=== PATIENT | female | born 1990 | race Two or more races ===

== ENCOUNTER 2020-04-13 13:36 | Outpatient (REF) | payer MEDICAID, SELFPAY ==
[2020-04-13 15:13] LABS: MANUAL DIFF FLAG NO
[2020-04-13 15:18] LABS: Basophils Absolute Auto 0.1 X10*3/uL (0.0-0.2); Basophils Percent Auto 0.7 % (0-2); Eosinophils Absolute Auto 0.8 X10*3/uL (0.0-0.4); Eosinophils Percent Auto 8.5 % (0-4); Hematocrit 37.2 % (37-47); Hemoglobin 12.3 g/dl (12.0-16.0); Imm Gran Abs Auto 0.03 X10*3/uL (0.00-0.03); Imm Gran Pct Auto 0.3 % (0.0-0.4); Lymphocytes Absolute Auto 2.7 X10*3/uL (1.2-4.9); Lymphocytes Percent Auto 27.8 % (20-40); Mean Corpuscular HGB Conc 33.1 g/dl (31.0-35.0); Mean Corpuscular Volume 96.9 fL (80-98); Mean Platelet Volume 10.8 fL (9.4-12.3); Monocytes Absolute Auto 0.7 X10*3/uL (0.1-1.2); Monocytes Percent Auto 7.1 % (2-11); Neutrophils Absolute Auto 5.3 X10*3/uL (2.0-8.3); Neutrophils Percent Auto 55.6 % (45-73); Platelet Count 390 X10*3/uL (160-400); Red Blood Count 3.84 X10*6/uL (4.20-5.50); Red Cell Distribution Width 12.4 % (11.0-16.0); White Blood Count 9.5 X10*3/uL (4.8-10.8)
[2020-04-13 16:11] LABS: Ferritin 41 ng/mL (10-122); Thyroid Stimulating Hormone 22.79 uIU/mL (0.32-4.0)
== END 2020-04-13 13:37 | disposition home or self-care (01) ==
LOC: HO.LAB 13:36
PROVIDERS: Visit Provider Internal Medicine
DX: D50.9 Iron deficiency anemia, unspecified (principal); E03.9 Hypothyroidism, unspecified
CPT/HCPCS: 36415; 82728; 84443; 85025

== ENCOUNTER 2020-07-16 14:38 | Outpatient (REF) | payer MEDICAID, SELFPAY | END 2020-07-16 14:39 | disposition home or self-care (01) | LOC: HO.LAB 14:38 | PROVIDERS: PCP Internal Medicine; Visit Provider Internal Medicine | DX: D50.9 Iron deficiency anemia, unspecified (principal); E03.9 Hypothyroidism, unspecified | CPT/HCPCS: 36415; 84443 ==

== ENCOUNTER 2021-01-15 14:16 | Outpatient (REF) | payer MEDICAID, SELFPAY ==
[2021-01-15 15:11] LABS: MANUAL DIFF FLAG NO
[2021-01-15 15:15] LABS: Basophils Absolute Auto 0.1 X10*3/uL (0.0-0.2); Basophils Percent Auto 0.5 % (0-2); Eosinophils Absolute Auto 0.5 X10*3/uL (0.0-0.4); Eosinophils Percent Auto 4.9 % (0-4); Hematocrit 35.8 % (37-47); Hemoglobin 11.5 g/dl (12.0-16.0); Imm Gran Abs Auto 0.03 X10*3/uL (0.00-0.03); Imm Gran Pct Auto 0.3 % (0.0-0.4); Lymphocytes Percent Auto 20.3 % (20-40); Mean Corpuscular HGB Conc 32.1 g/dl (31.0-35.0); Mean Corpuscular Volume 99.7 fL (80-98); Mean Platelet Volume 10.8 fL (9.4-12.3); Monocytes Absolute Auto 0.7 X10*3/uL (0.1-1.2); Monocytes Percent Auto 7.3 % (2-11); Neutrophils Absolute Auto 6.4 X10*3/uL (2.0-8.3); Neutrophils Percent Auto 66.7 % (45-73); Platelet Count 325 X10*3/uL (160-400); Red Blood Count 3.59 X10*6/uL (4.20-5.50); Red Cell Distribution Width 11.2 % (11.0-16.0); White Blood Count 9.7 X10*3/uL (4.8-10.8)
[2021-01-15 15:53] LABS: Thyroid Stimulating Hormone 0.69 uIU/mL (0.32-4.0)
== END 2021-01-15 14:17 | disposition home or self-care (01) ==
LOC: HO.LAB 14:16
PROVIDERS: PCP Internal Medicine; Visit Provider Internal Medicine
DX: D50.9 Iron deficiency anemia, unspecified (principal); E03.9 Hypothyroidism, unspecified
CPT/HCPCS: 36415; 84443; 85025

== ENCOUNTER 2021-09-26 11:37 | Emergency (ER) | payer MEDICAID, SELFPAY ==
--- NOTE | ~2021-09-26 | XR_ITS ---
EXAMINATION: XR CHEST CLINICAL INFORMATION: Chest pain with shortness of breath COMPARISON: December 19, 2016 TECHNIQUE: 2 views of the chest were obtained. FINDINGS: No significant abnormality is noted involving the heart, lungs, mediastinum, bony thorax or soft tissues. XR/XR chest 2V IMPRESSION: No acute disease.
--- NOTE | ~2021-09-26 | CT_ITS ---
EXAMINATION: CT ANGIOGRAM OF THE CHEST WITH AND WITHOUT CONTRAST (CT PULMONARY ANGIOGRAM FOR PE) CLINICAL INFORMATION: Reason for Exam sudden onset CP, SOB, elevated d-dimer COMPARISON: Chest radiograph earlier today TECHNIQUE: Prior to contrast administration, noncontrast localization images were obtained. Subsequently, multidetector volumetric imaging was performed from the thoracic inlet to below the diaphragms following the administration of 65 mL Omnipaque 350 intravenous contrast. No contrast reaction reported Sagittal, coronal, and MIP oblique sagittal reformatted images were obtained on the CT workstation, uploaded to PACS, and reviewed. This CT examination was performed using dose optimization techniques as appropriate, variously including the following: *Automated exposure control *Adjustment of mA and/or kV according to patient size (this includes techniques or standardized protocols for targeted exams where dose is matched to indication/reason for exam; i.e. extremities or head) *Use of iterative reconstruction technique Total exam dose-length product 395 mGy-cm FINDINGS: QUALITY OF STUDY/CONTRAST BOLUS: Suboptimal. PULMONARY ARTERIES: No central or segmental pulmonary emboli. THORACIC AORTA: No aneurysm or dissection. LUNG: There is a 3 mm fissural lymph node in the major fissure (7:231). There is a 3 mm right middle lobe nodule (7:297) No focal consolidation, other nodules or masses. PLEURA: No pleural effusion or pneumothorax. MEDIASTINUM: Normal heart size. No pericardial effusion. No hilar or mediastinal lymphadenopathy. No evidence of septal bowing or right heart strain. CHEST WALL/AXILLA: No axillary or internal mammary lymphadenopathy. OSSEOUS STRUCTURES: No acute or suspicious osseous abnormality. UPPER ABDOMEN: There is diastases of the rectus muscles. No reflux of contrast into the hepatic veins to suggest elevated right heart pressures. CT/CT angio chest PE protocol IMPRESSION: No evidence of pulmonary emboli. 3 mm pulmonary nodules as described above which most likely need no further follow-up. 2017 Fleischner Society Recommendations for Lung Nodule(s): Follow-Up based on size (average of long- and short-axis diameters). Use most suspicious nodule for followup. Multiple Solid lung nodules < 6 mm: Follow up management based on most suspicious nodule. In a low-risk patient, no routine follow-up imaging is recommended. In a high-risk patient, a non-contrast Chest CT at 12 months is optional. If performed and the nodule is stable at 12 months, no further follow-up is recommended. These guidelines do not apply to patients younger than 35 years, immunocompromised patients, and patients with cancer. F/u in patients with significant comorbidities as clinically warranted. For lung cancer screening, adhere to Lung-RADS guidelines. Reference: Radiology. 2017 Cristobal; 284(1):228-243 VTE: negative
--- NOTE | 2021-09-26 11:38 | ECG_ITS ---
Test Reason : cp Blood Pressure : / mmHG Vent. Rate : 090 BPM Atrial Rate : 090 BPM P-R Int : 124 ms QRS Dur : 078 ms QT Int : 360 ms P-R-T Axes : 063 081 036 degrees QTc Int : 440 ms Normal sinus rhythm with sinus arrhythmia Normal ECG When compared to the previous EKG of No significant changes seen Referred By: Generic ED Physician Electronically Signed By:MICHELLE LACKEY MD
[2021-09-26 11:40] VITALS: BP 112/65; PULSE 70; RESP 22; TEMP 36.5; O2SAT 100; BMI 34.5
[2021-09-26 11:49] LABS: MANUAL DIFF FLAG NO
[2021-09-26 11:54] LABS: Basophils Absolute Auto 0.1 X10*3/uL (0.0-0.2); Basophils Percent Auto 0.7 % (0-2); Eosinophils Absolute Auto 0.4 X10*3/uL (0.0-0.4); Eosinophils Percent Auto 4.9 % (0-4); Hematocrit 38.2 % (37.0-47.0); Hemoglobin 12.6 g/dl (12.0-16.0); Imm Gran Abs Auto 0.02 X10*3/uL (0.00-0.03); Imm Gran Pct Auto 0.3 % (0.0-0.4); Lymphocytes Absolute Auto 1.6 X10*3/uL (1.2-4.9); Lymphocytes Percent Auto 21.9 % (20-40); Mean Corpuscular Hemoglobin 32.3 pg (27.0-33.0); Mean Corpuscular Volume 97.9 fL (80.0-98.0); Mean Platelet Volume 10.1 fL (9.4-12.3); Monocytes Absolute Auto 0.7 X10*3/uL (0.1-1.2); Monocytes Percent Auto 9.3 % (2-11); Neutrophils Absolute Auto 4.5 x10*3/uL (2.0-8.3); Neutrophils Percent Auto 62.9 % (45-73); Platelet Count 311 X10*3/uL (160-400); Red Cell Distribution Width 11.4 % (11.0-16.0); White Blood Count 7.1 X10*3/uL (4.8-10.8)
[2021-09-26 12:08] LABS: Anion Gap 10 (12-20); Blood Urea Nitrogen 8 mg/dL (9-16); Calcium 10.3 mg/dL (8.4-10.2); Carbon Dioxide 28 mmol/L (22-29); Chloride 104 mmol/L (96-108); Creatinine Clr Calc Pharmacy 113.6; Estimated Glomerular Filt Rate > 60; Glucose Random 90 mg/dL (60-115); Sodium 138 mmol/L (135-145)
[2021-09-26 12:14] LABS: Troponin-I High Sensitivity < 3.5 ng/L (<3.5-17.0)
[2021-09-26 12:53] LABS: HCG Quantitative < 2 mIU/mL
[2021-09-26 13:09] VITALS: BP 114/73; PULSE 73; RESP 19; O2SAT 99
[2021-09-26] MEDS: Acetaminophen 325 MG TABLET 975 MG PO (13:12)
[2021-09-26] MEDS: Lidocaine HCl Viscous 2 % 15 ML SOLUTION MUCOUS MEM (13:12)
[2021-09-26] MEDS: Magnesium Hydrox/Alum Hydrox 30 ML ORAL.SUSP PO (13:12)
--- NOTE | 2021-09-26 13:18 | ED_ITS ---
HPI - Chest Pain General Chief Complaint: Chest Pain Stated Complaint: chest pain Time Seen by Provider: 09/26/21 12:12 Source: patient Mode of arrival: ambulatory Limitations: no limitations History of Present Illness HPI narrative: patient presents emergency department for evaluation of sudden onset at 1000 this morning while sitting at work of midsternal chest pain described as an intense pressure like someone hitting me in my chest heart associated with intermittent feelings of shortness of breast, like I need to gasp for air . she reports a similar episode like this occur room 2 weeks ago but self resolved quickly over a few minutes and thought-avid. She contacted her primary care doctor today and schedule an appointment for evaluation in 4 days, but was advised to come to the emergency department if her symptoms continued or worsened. Denies recent upper respiratory symptoms, fevers, chills, cough, sore throat, congestion, nausea, vomiting, abdominal pain, diarrhea, constipation, dysuria, and frequency, possibility of . Denies past history of DVT/ PE, personal history of cancer, recent prolonged immobilization hospitalization, recent surgical procedures, known clotting disorder, does not smoke cigarettes, is not on oral control. Related Data Allergies Allergy/AdvReac Type Severity Reaction Status Date / Time aspirin [ASA] Allergy Intermediate Rash Verified 09/26/21 11:46 Review of Systems Review of Systems: Constitutional : No Fever, No Chills ENT/Mouth : No sore throat, No Rhinorrhea, No Swallowing Difficulty Eyes: No Eye Pain, No Swelling, No Redness Cardiovascular : Positive Chest Pain, positive SOB, No Orthopnea, no Edema Respiratory : No Cough, No Sputum, No Wheezing, positive dyspnea Gastrointestinal : No Nausea, No Vomiting, No Diarrhea, No abdominal Pain, No Hematochezia, No Melena Genitourinary : No Dysuria, No Urinary Frequency, No Hematuria Musculoskeletal : No joint pain, No Myalgias Skin : No Skin Lesions, No rash Neuro : No Weakness, No Numbness, No Dizziness, No Headache Psych : No Anxiety/Panic, No Depression Heme/Lymph: No Bruising, No Lymphadenopathy Endocrine : No Polyuria, No Polydipsia Yes all other systems are reviewed and are negative [facility] Past Medical History Attestation statement: The following information was validated with the patient. Source: old records reviewed Medical History Hypothyroidism Migraine Social History Social History Smoked in Last 30 Days: No Use of substances other than those prescribed or required for medical reasons: No Advance Directives: No Advance Directives Information Provided: Yes Patient : No Physical Exam Vital Signs: Vital Signs: Last Vital Signs Temp 98.3 F 09/26/21 17:34 Pulse 64 09/26/21 17:34 Resp 19 09/26/21 17:34 BP 114/71 09/26/21 17:34 Pulse Ox 97 09/26/21 17:34 BMI result Body Mass Index 34.5 Vital signs have been reviewed as normal and appeared to be correct. Blood pressure normal.? Heart rate normal.? Respiration rate normal. Temperature normal.? Oxygen saturation normal. Appearance: Alert.?Oriented to person, place and time. No acute distress.?Normal affect. Eyes: Pupils equal, round and reactive to light.? ENT: Pharynx normal.?? Neck: Normal inspection.? Neck supple.?? CVS: Heart sounds normal. Normal heart rate and rhythm.? Pulses normal.?? Respiratory: No respiratory distress.? Lung sounds clear to auscultation bilaterally?? Abdomen: Soft and non-tender. Normoactive bowel sounds. No pulsatile mass.?? Skin: Skin warm and dry.? Normal skin color.? ?? Extremities: No lower extremity edema.? No calf ttp? Neuro: Moves all extremities spontaneously. Sensation intact bilaterally. CN II- XII intact. No focal neuro deficits. Ambulates with normal steady gait. Course Course Course Narrative: Patient is a 31 year old female with no significant past medical history presenting for evaluation of sudden onset of chest pain and shortness breath. Will obtain CBC to evaluate for leukocytosis/ anemia, CMP to evaluate for abnormal electrolytes /abnormal renal function/ abnormal hepatic function, EKG and troponin to evaluate for ischemia/ACS. Chest x-ray to evaluate for consolidation/ infiltrate/ mass/ pulmonary congestion. Urinalysis to evaluate for infection. Will provide Tylenol for pain at this time in addition to Maalox lidocaine viscous. Reevaluation(s) Reevaluation #1: CBC and BMP are overall normal. COVID- 19 and influenza testing are negative. Chest x-ray with no acute disease. she reports mild improvement in her symptoms after receiving GI cocktail and Tylenol. Troponin <3.5, EKG reveals normal sinus rhythm, no acute concern for ischemia, no risk factors for ACS, given onset of symptoms just prior to arrival will obtain delta troponin. D-dimer mildly elevated at 259, therefore will obtain CT angio of the chest to exclude pulmonary embolism. Time: 14:42 Reevaluation #2: Repeat delta troponin <3.5, therfore unlikely ACS. CTA chest unremarkable for pulmonary embolism, there is a 3 mm right middle lobe lung nodule. discussed findings with patient, recommended outpatient follow-up with primary care provider regarding lung nodule, reviewed reasons to return back to the emergency department, plan of care for discharge home, all questions were answered, and she is agreeable with plan of care for discharge home. Time: 17:25 [facility] - Chest Pain Medical Records Data Attestation: I reviewed the patient's medical records. Lab Data Attestation: I reviewed the patient's lab results. Result diagrams: 09/26/21 11:45 09/26/21 11:45 Labs: Lab Results 09/26/21 09/26/21 09/26/21 Range/Units 11:45 11:45 11:45 WBC 7.1 (4.8-10.8) X10*3/uL RBC 3.90 L (4.20-5.50) X10*6/uL Hgb 12.6 (12.0-16.0) g/dl Hct 38.2 (37.0-47.0) % MCV 97.9 (80.0-98.0) fL MCH 32.3 (27.0-33.0) pg MCHC 33.0 (31.0-35.0) g/dl RDW 11.4 (11.0-16.0) % Plt Count 311 (160-400) X10*3/uL MPV 10.1 (9.4-12.3) fL Immature Gran % (Auto) 0.3 (0.0-0.4) % Neut % (Auto) 62.9 (45-73) % Lymph % (Auto) 21.9 (20-40) % [place] % (Auto) 9.3 (2-11) % Eos % (Auto) 4.9 H (0-4) % Baso % (Auto) 0.7 (0-2) % Lymph # (Auto) 1.6 (1.2-4.9) X10*3/uL [place] # (Auto) 0.7 (0.1-1.2) X10*3/uL Eos # (Auto) 0.4 (0.0-0.4) X10*3/uL Baso # (Auto) 0.1 (0.0-0.2) X10*3/uL Abs Immat Gran (auto) 0.02 (0.00-0.03) X10*3/uL Absolute Neuts (auto) 4.5 (2.0-8.3) x10*3/uL Absolute Nucleated RBC 0.000 (0.0-0.012) X10*3/uL Nucleated RBC % (auto) 0.0 (0.0-0.2) /100WBC D-Dimer High Sensitivty NG/ML Sodium 138 (135-145) mmol/L Potassium 4.0 (3.3-5.1) mmol/L Chloride 104 (96-108) mmol/L Carbon Dioxide 28 (22-29) mmol/L Anion Gap 10 L (12-20) BUN 8 L (9-16) mg/dL Creatinine 0.66 (0.5-1.4) mg/dL Estim Creat Clear Calc 113.6 Estimated GFR > 60 Random Glucose 90 (60-115) mg/dL Calcium 10.3 H (8.4-10.2) mg/dL Troponin I High Sens < 3.5 (<3.5-17.0) ng/L Beta HCG, Quant < 2 mIU/mL COVID-19 (OZIEL) (Negative) COVID-19 Clin Com Influenza Type A (JENNIFER) Influenza Type B (JENNIFER) Influenza A & B Note 09/26/21 09/26/21 09/26/21 Range/Units 13:14 13:14 14:00 WBC (4.8-10.8) X10*3/uL RBC (4.20-5.50) X10*6/uL Hgb (12.0-16.0) g/dl Hct (37.0-47.0) % MCV (80.0-98.0) fL MCH (27.0-33.0) pg MCHC (31.0-35.0) g/dl RDW (11.0-16.0) % Plt Count (160-400) X10*3/uL MPV (9.4-12.3) fL Immature Gran % (Auto) (0.0-0.4) % Neut % (Auto) (45-73) % Lymph % (Auto) (20-40) % Radford % (Auto) (2-11) % Eos % (Auto) (0-4) % Baso % (Auto) (0-2) % Lymph # (Auto) (1.2-4.9) X10*3/uL [place] # (Auto) (0.1-1.2) X10*3/uL Eos # (Auto) (0.0-0.4) X10*3/uL Baso # (Auto) (0.0-0.2) X10*3/uL Abs Immat Gran (auto) (0.00-0.03) X10*3/uL Absolute Neuts (auto) (2.0-8.3) x10*3/uL Absolute Nucleated RBC (0.0-0.012) X10*3/uL Nucleated RBC % (auto) (0.0-0.2) /100WBC D-Dimer High Sensitivty 259 NG/ML Sodium (135-145) mmol/L Potassium (3.3-5.1) mmol/L Chloride (96-108) mmol/L Carbon Dioxide (22-29) mmol/L Anion Gap (12-20) BUN (9-16) mg/dL Creatinine (0.5-1.4) mg/dL Estim Creat Clear Calc Estimated GFR Random Glucose (60-115) mg/dL Calcium (8.4-10.2) mg/dL Troponin I High Sens (<3.5-17.0) ng/L Beta HCG, Quant mIU/mL COVID-19 (OZIEL) Negative (Negative) COVID-19 Clin Com See Note Influenza Type A (JENNIFER) Cancelled Influenza Type B (JENNIFER) Cancelled Influenza A & B Note Cancelled 09/26/21 09/26/21 Range/Units 14:00 14:48 WBC (4.8-10.8) X10*3/uL RBC (4.20-5.50) X10*6/uL Hgb (12.0-16.0) g/dl Hct (37.0-47.0) % MCV (80.0-98.0) fL MCH (27.0-33.0) pg MCHC (31.0-35.0) g/dl RDW (11.0-16.0) % Plt Count (160-400) X10*3/uL MPV (9.4-12.3) fL Immature Gran % (Auto) (0.0-0.4) % Neut % (Auto) (45-73) % Lymph % (Auto) (20-40) % [place] % (Auto) (2-11) % Eos % (Auto) (0-4) % Baso % (Auto) (0-2) % Lymph # (Auto) (1.2-4.9) X10*3/uL [place] # (Auto) (0.1-1.2) X10*3/uL Eos # (Auto) (0.0-0.4) X10*3/uL Baso # (Auto) (0.0-0.2) X10*3/uL Abs Immat Gran (auto) (0.00-0.03) X10*3/uL Absolute Neuts (auto) (2.0-8.3) x10*3/uL Absolute Nucleated RBC (0.0-0.012) X10*3/uL Nucleated RBC % (auto) (0.0-0.2) /100WBC D-Dimer High Sensitivty NG/ML Sodium (135-145) mmol/L Potassium (3.3-5.1) mmol/L Chloride (96-108) mmol/L Carbon Dioxide (22-29) mmol/L Anion Gap (12-20) BUN (9-16) mg/dL Creatinine (0.5-1.4) mg/dL Estim Creat Clear Calc Estimated GFR Random Glucose (60-115) mg/dL Calcium (8.4-10.2) mg/dL Troponin I High Sens < 3.5 (<3.5-17.0) ng/L Beta HCG, Quant mIU/mL COVID-19 (OZIEL) (Negative) COVID-19 Clin Com Influenza Type A (JENNIFER) Negative Influenza Type B (JENNIFER) Negative Influenza A & B Note See Note Imaging Data Chest x-ray: Radiologist's impression: FINDINGS: No significant abnormality is noted involving the heart, lungs, mediastinum, bony thorax or soft tissues. XR/XR chest 2V IMPRESSION: No acute disease. ECG Data ECG #1: Attestation: I personally reviewed and interpreted this ECG as follows: ECG interpretation date: 09/26/21 ECG interpretation time: 13:18 Prior ECG tracings: available for review Interpretation: Rate: 90 Rhythm:? normal sinus rhythm [place]:? normal Normal P waves.? Normal JERAMY.?? Normal QRS complex.?? ST T wave :?? no ST elevation, no ST depression, T-wave inversion qTC: 440 prior studies:? December 2016 The study has been interpreted contemporaneously by me. Discharge Plan Discharge Clinical Impression: Atypical chest pain Patient Disposition: Home, Self-Care Instructions: Noncardiac Chest Pain (ED) Additional Instructions: return to the emergency department with any new or worsening symptoms or concerns. You may use Tylenol or ibuprofen as needed for pain. Please contact your primary care provider to schedule follow-up visit, as we discussed there was a 3mm nodule found in your right middle lobe, your primary care doctor should be made aware of this. Interventions: ED Discharge Assessment Last Done: 09/26/21 17:36 Discharge Date/Time: 09/26/21 17:38
[2021-09-26 13:43] LABS: COVID-19 Test Negative (Negative)
[2021-09-26 14:14] LABS: D Dimer High Sensitivity 259 NG/ML
[2021-09-26 14:22] LABS: Influenza A Negative (Negative); Influenza B2 Negative (Negative)
[2021-09-26 15:14] LABS: Troponin-I High Sensitivity < 3.5 ng/L (<3.5-17.0)
[2021-09-26 15:16] VITALS: BP 101/60; PULSE 65; RESP 15; TEMP 36.9; O2SAT 97
[2021-09-26] MEDS: iohexoL 350 MG/ML 100 ML INFUS..BTL IV (15:59)
[2021-09-26 17:34] VITALS: BP 114/71; PULSE 64; RESP 19; TEMP 36.8; O2SAT 97
== END 2021-09-26 17:38 | disposition home or self-care (01) ==
PROVIDERS: Nurse Practitioner Family; Emergency Provider Student in an Organized Health Care Education/Training Program; PCP Internal Medicine
DX: R07.89 Other chest pain (principal); Z20.822 Contact with and (suspected) exposure to COVID-19; Z79.899 Other long term (current) drug therapy
CPT/HCPCS: 36415; 71046; 71275; 80048; 84484; 84702; 85025; 85379; 87502; 87635; 93005; 99285; Q9967

== ENCOUNTER → 2021-10-07 14:36 | Outpatient (BNVA) | payer SELFPAY | PROVIDERS: PCP Internal Medicine | DX: Z11.1 Encounter for screening for respiratory tuberculosis (principal) ==

== ENCOUNTER 2022-04-22 14:03 | Outpatient (REF) | payer MEDICAID, SELFPAY ==
[2022-04-22 14:20] LABS: MANUAL DIFF FLAG NO
[2022-04-22 15:44] LABS: Basophils Absolute Auto 0.1 X10*3/uL (0.0-0.2); Basophils Percent Auto 0.8 % (0-2); Eosinophils Absolute Auto 0.4 X10*3/uL (0.0-0.4); Eosinophils Percent Auto 5.4 % (0-4); Hemoglobin 11.9 g/dl (12.0-16.0); Imm Gran Abs Auto 0.02 X10*3/uL (0.00-0.03); Imm Gran Pct Auto 0.3 % (0.0-0.4); Lymphocytes Percent Auto 24.8 % (20-40); Mean Corpuscular HGB Conc 32.2 g/dl (31.0-35.0); Mean Corpuscular Hemoglobin 31.8 pg (27.0-33.0); Mean Corpuscular Volume 98.9 fL (80.0-98.0); Monocytes Absolute Auto 0.6 X10*3/uL (0.1-1.2); Monocytes Percent Auto 7.5 % (2-11); Neutrophils Absolute Auto 4.9 x10*3/uL (2.0-8.3); Neutrophils Percent Auto 61.2 % (45-73); Platelet Count 327 X10*3/uL (160-400); Red Blood Count 3.74 X10*6/uL (4.20-5.50); Red Cell Distribution Width 11.5 % (11.0-16.0); White Blood Count 7.9 X10*3/uL (4.8-10.8)
[2022-04-22 16:32] LABS: Alanine Aminotransferase 22 U/L (0-31); Albumin Level 4.4 g/dL (3.5-5.0); Alkaline Phosphatase 55 U/L (39-117); Anion Gap 13 (12-20); Aspartate Amino Transferase 15 U/L (5-31); Bilirubin Total 1.8 mg/dL (0.0-1.0); Blood Urea Nitrogen 11 mg/dL (9-16); Calcium 9.9 mg/dL (8.4-10.2); Carbon Dioxide 26 mmol/L (22-29); Chloride 104 mmol/L (96-108); Estimated Glomerular Filt Rate > 60; Glucose Random 72 mg/dL (60-115); Potassium 4.1 mmol/L (3.3-5.1); Sodium 139 mmol/L (135-145); Thyroid Stimulating Hormone 2.01 uIU/mL (0.32-4.0); Total Protein 7.2 g/dL (6.5-8.0)
== END 2022-04-22 14:04 | disposition home or self-care (01) ==
LOC: HO.LAB 14:03
PROVIDERS: PCP Internal Medicine; Visit Provider Internal Medicine
DX: Z00.00 Encounter for general adult medical examination without abnormal findings (principal); E03.9 Hypothyroidism, unspecified; G44.209 Tension-type headache, unspecified, not intractable; Z13.31 Encounter for screening for depression
CPT/HCPCS: 36415; 80053; 84443; 85025

== ENCOUNTER 2022-10-15 13:42 | Outpatient (REF) | payer MEDICAID, SELFPAY ==
[2022-10-15 13:54] LABS: MANUAL DIFF FLAG NO
[2022-10-15 14:57] LABS: Basophils Percent Auto 0.4 % (0-2); Eosinophils Absolute Auto 0.5 X10*3/uL (0.0-0.4); Eosinophils Percent Auto 4.6 % (0-4); Hematocrit 36.4 % (37.0-47.0); Hemoglobin 12.1 g/dl (12.0-16.0); Imm Gran Abs Auto 0.03 X10*3/uL (0.00-0.03); Imm Gran Pct Auto 0.3 % (0.0-0.4); Lymphocytes Absolute Auto 2.3 X10*3/uL (1.2-4.9); Lymphocytes Percent Auto 23.3 % (20-40); Mean Corpuscular HGB Conc 33.2 g/dl (31.0-35.0); Mean Corpuscular Hemoglobin 32.5 pg (27.0-33.0); Mean Corpuscular Volume 97.8 fL (80.0-98.0); Mean Platelet Volume 10.6 fL (9.4-12.3); Monocytes Absolute Auto 0.7 X10*3/uL (0.1-1.2); Monocytes Percent Auto 6.6 % (2-11); Neutrophils Absolute Auto 6.4 x10*3/uL (2.0-8.3); Neutrophils Percent Auto 64.8 % (45-73); Platelet Count 333 X10*3/uL (160-400); Red Blood Count 3.72 X10*6/uL (4.20-5.50); White Blood Count 9.8 X10*3/uL (4.8-10.8)
[2022-10-15 16:17] LABS: Alanine Aminotransferase 22 U/L (0-31); Albumin Level 4.4 g/dL (3.5-5.0); Alkaline Phosphatase 52 U/L (39-117); Anion Gap 11 (12-20); Aspartate Amino Transferase 15 U/L (5-31); Bilirubin Total 1.6 mg/dL (0.0-1.0); Blood Urea Nitrogen 11 mg/dL (9-16); Calcium 9.8 mg/dL (8.4-10.2); Carbon Dioxide 28 mmol/L (22-29); Chloride 104 mmol/L (96-108); Estimated Glomerular Filt Rate > 60; Glucose Random 78 mg/dL (60-115); Potassium 4.1 mmol/L (3.3-5.1); Sodium 139 mmol/L (135-145); Total Protein 7.2 g/dL (6.5-8.0)
[2022-10-15 16:35] LABS: Thyroid Stimulating Hormone 2.39 uIU/mL (0.32-4.0)
== END 2022-10-15 13:43 | disposition home or self-care (01) ==
LOC: HO.LAB 13:42
PROVIDERS: PCP Internal Medicine; Visit Provider Internal Medicine
DX: Z00.00 Encounter for general adult medical examination without abnormal findings (principal); Z13.31 Encounter for screening for depression; E03.9 Hypothyroidism, unspecified; G44.209 Tension-type headache, unspecified, not intractable
CPT/HCPCS: 36415; 80053; 84443; 85025

== ENCOUNTER 2022-10-20 13:56 | Outpatient (REF) | payer MEDICAID, SELFPAY ==
[2022-10-22 15:14] LABS: TS Negative Control Passed; TS Panel A 0; TS Panel B 0; TS Positive Control Passed; TSpotTB Negative (Negative)
== END 2022-10-20 13:57 | disposition home or self-care (01) ==
LOC: HO.LAB 13:56
PROVIDERS: PCP Internal Medicine; Visit Provider Internal Medicine
DX: Z11.1 Encounter for screening for respiratory tuberculosis (principal)
CPT/HCPCS: 36415; 86481

== ENCOUNTER 2023-04-22 13:46 | Outpatient (REF) | payer MEDICAID, SELFPAY ==
[2023-04-22 15:23] LABS: Alanine Aminotransferase 24 U/L (0-31); Albumin Level 4.6 g/dL (3.5-5.0); Alkaline Phosphatase 51 U/L (39-117); Anion Gap 9 (12-20); Aspartate Amino Transferase 18 U/L (5-31); Bilirubin Total 1.9 mg/dL (0.0-1.0); Blood Urea Nitrogen 12 mg/dL (9-16); Calcium 9.5 mg/dL (8.4-10.2); Carbon Dioxide 26 mmol/L (22-29); Chloride 107 mmol/L (96-108); Estimated Glomerular Filt Rate > 60; Glucose Random 89 mg/dL (60-115); Sodium 138 mmol/L (135-145); Total Protein 7.7 g/dL (6.5-8.0)
[2023-04-22 15:31] LABS: Thyroid Stimulating Hormone 0.71 uIU/mL (0.32-4.0)
== END 2023-04-22 13:47 | disposition home or self-care (01) ==
LOC: HO.LAB 13:46
PROVIDERS: PCP Internal Medicine; Visit Provider Internal Medicine
DX: Z00.00 Encounter for general adult medical examination without abnormal findings (principal); E03.9 Hypothyroidism, unspecified; G44.209 Tension-type headache, unspecified, not intractable; G56.01 Carpal tunnel syndrome, right upper limb
CPT/HCPCS: 36415; 80053; 84443

== ENCOUNTER 2023-10-28 09:17 | Outpatient (REF) | payer MEDICAID, SELFPAY ==
[2023-10-28 11:15] LABS: Alanine Aminotransferase 25 U/L (0-31); Albumin Level 4.6 g/dL (3.5-5.0); Alkaline Phosphatase 53 U/L (39-117); Anion Gap 15 (12-20); Aspartate Amino Transferase 17 U/L (5-31); Bilirubin Total 2.4 mg/dL (0.0-1.0); Blood Urea Nitrogen 8 mg/dL (9-16); Calcium 9.6 mg/dL (8.4-10.2); Carbon Dioxide 22 mmol/L (22-29); Chloride 105 mmol/L (96-108); Cholesterol 170 mg/dL (<200); Estimated Glomerular Filt Rate > 60; Glucose Random 90 mg/dL (60-115); HDL Cholesterol 67 mg/dL (>40); LDL Cholesterol Calculated 90 mg/dL (<100); Sodium 138 mmol/L (135-145); Total Protein 7.6 g/dL (6.5-8.0); Triglycerides 66 mg/dL (<150)
[2023-10-28 11:19] LABS: Thyroid Stimulating Hormone 0.95 uIU/mL (0.32-4.0)
== END 2023-10-28 09:18 | disposition home or self-care (01) ==
LOC: HO.LAB 09:17
PROVIDERS: PCP Internal Medicine; Visit Provider Internal Medicine
DX: E03.9 Hypothyroidism, unspecified (principal); G44.209 Tension-type headache, unspecified, not intractable; G56.01 Carpal tunnel syndrome, right upper limb; R07.89 Other chest pain
CPT/HCPCS: 36415; 80053; 80061; 84443

== ENCOUNTER 2023-12-07 12:26 | Outpatient (AMB) | payer MEDICAID, SELFPAY ==
--- NOTE | 2023-12-07 12:39 | A.OFFVIS_ITS ---
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 She states that she is concerned as there is a family history of cardiac issues. Her chest pains or across the front of the chest, and it seems more so in the breast than the actual chest but not very clear. Discussed with patient using translator interpreter. Still somewhat difficult to understand completely. She states she also works out in the gym but not get pains at those times. Seems to be very random in occurrence. No previous cardiac issues per patient. Per PCP note, there is mention of chest pain radiating to neck and squeezing type symptoms. PFSH Medical History Migraine Hypothyroidism Family History (Updated 12/07/23 @ 12:46 by Kyara Leone CMA) Mother Hypertension Social History (Updated 12/07/23 @ 12:46 by Kyara Leone CMA) Alcohol intake: never Patient Tobacco Use Status: Never used Tobacco Review of Systems Const All systems reviewed & are unremarkable except as noted in HPI and below Reports as per HPI and Reports no additional complaints Eyes Reports as per HPI and Denies no additional complaints ENT Denies no additional complaints and Reports as per HPI Card Reports chest pain, Denies palpitations and Denies dyspnea Resp Reports as per HPI, Denies no additional complaints and Denies dyspnea GI Reports as per HPI and Denies no additional complaints Reports as per HPI Musc Reports no additional complaints and Reports as per HPI Skin/Breast Reports system reviewed and no additional complaints, except as documented Neuro Reports no additional complaints and Reports as per HPI Psych Reports no additional complaints and Reports as per HPI Endo Reports no additional complaints, Reports as per HPI and Denies palpitations Tommy/Lymph Reports no additional complaints and Reports as per HPI Aller/Immun Reports no additional complaints and Reports as per HPI Physical Exam Vital Signs: Last Vital Signs Pulse 66 12/07/23 12:40 BP 132/70 12/07/23 12:40 BMI result Body Mass Index 34.6 Const General: comfortable and no acute distress Orientation/consciousness: patient oriented x3 HEENT Other: Unremarkable Head: Yes normal to inspection Neck Neck: Yes normal visual inspection Chest Chest palpation & inspection: normal inspection of the chest Resp Auscultation: clear to auscultation bilaterally Cardio Palpation: normal PMI Heart sounds: S1 normal heart sound present, S2 normal heart sound present, no gallops, no murmurs and no rubs GI Palpation (GI): Soft to palpation Back/Spine/Pelvis Other: unremarkable Skin General skin exam: no rashes or lesions noted Neuro General: patient oriented x3 Extrem General: Yes normal to inspection Psych Mental Status: mental status grossly normal Office Procedures EKG Details: EKG with sinus rhythm at 66/Min; no significant ST-T changes and otherwise unremarkable[place]. [address]-[id number], Complete Assessment & Plan Assessment & Plan (1) Precordial chest pain: Code(s): R07.2 - Precordial pain Category: Medical Plan Atypical sounding chest pain. Obtain echocardiogram/ETT for further evaluation. Plan based on findings. Orders: Orders CA echo transthoracic complete Today R07.2 - Precordial pain CA stress test Today R07.2 - Precordial pain Coding Level of Care Code New Pt Level 3 (74863) Diagnoses Precordial chest pain R07.2 CPT Codes EKG - CPT: 85952-[id number], Complete ([id number])
[2023-12-07 12:40] VITALS: BP 132/70; PULSE 66; BMI 34.6
== END 2023-12-07 13:03 | disposition home or self-care (01) ==
PROVIDERS: PCP Internal Medicine; Visit Provider Internal Medicine
DX: R07.2 Precordial pain (principal)
CPT/HCPCS: 93010; 99203

== ENCOUNTER → 2023-12-07 12:26 | Outpatient (BNVA) | payer MEDICAID, SELFPAY | PROVIDERS: PCP Internal Medicine; Visit Provider Internal Medicine | DX: R07.2 Precordial pain (principal) | CPT/HCPCS: 93005; 99202 ==

== ENCOUNTER → 2024-01-06 09:03 | Outpatient (REF) | payer MEDICAID, SELFPAY ==
--- NOTE | 2024-01-06 09:08 | CA_ITS ---
Transthoracic Echocardiogram Patient (Last, First, Middle): Mariah Maguire, Gender: Female Date of : 1990 Age: 33 Procedure Date: 01/06/2024 Procedure Type: Transthoracic Echocardiogram Location: OP Height: 152.4 cm Weight: 80.29 kg BSA: 1.77 m2 Heart Rate: 59 bpm BP: 128 / 66 mmHg Telephone Services Sales Representative: MARSHA Referring MD: Benjamin Rucker MD Culinary Chef: Robert Durham MD Symptoms: R07.2 - Precordial pain Study Quality: Adequate ECG Rhythm: Bradycardia Conclusions: - Essentially normal study Findings Left Ventricle Normal left ventricular size, thickness, and systolic function. The visually estimated ejection fraction is between 55-60%. Diastolic function is normal for age. Right Ventricle Normal right ventricular cavity size and systolic function. Atria Both atria are normal in size. There is no evidence of interatrial shunt. Aortic Valve Normal aortic valve structure and function. There is no aortic valve stenosis. There is no aortic valve regurgitation. Mitral Valve Normal mitral valve structure and function. There is trace mitral valve regurgitation. There is no mitral valve stenosis. Pulmonic Valve The pulmonic valve is likely normal. There is trace pulmonic valve regurgitation. Tricuspid Valve Normal tricuspid valve structure. Tricuspid regurgitation envelope is inadequate for calculation of right ventricular systolic pressure. Normal right atrial pressure. Great Vessels All visible segments of the aorta are normal in size. The pulmonary artery was not well visualized. Venous The inferior vena cava is normal in size and collapses greater than 50% with inspiration. Pericardium/Pleural There is no evidence of pericardial effusion. Prior Study Comparison No prior study available for comparison. Measurements 2D Linear Measurements IVSd: 0.66 0.6-0.9/0.6-1.0 cm LVIDd: 5.21 3.9-5.3/4.2-5.9 cm LVIDd Index: 2.94 2.4-3.2/2.2-3.1 cm/m2 LVIDs: 3.46 2.0-3.6 cm LVPWd: 0.74 0.7-1.1 cm LA Diam: 3.40 2.7-3.8/3.0-4.0 cm LAIDs Index: 1.92 1.5-2.3 cm/m2 LV Mass: 153.14 67-162/88-224 g LV Mass Index: 86.52 43-95/49-115 g/m2 LVOT Diam: 2.10 3.0+(-)1.3 cm 2D Systolic Function EF 4C: 58.20 >55% EF 2C: 58.70 >55% EF BiP: 58.30 >55% Mitral Valve MV Pk E: 0.72 MV PK A: 0.34 MV Decel Time: 253.00 E/A: 2.10 E'Lateral: 9.90 E'Medial: 8.81 E/E' Med: 8.20 E/E' Lat: 7.30 PHT: 74.00 MVA PHT: 2.97 Decel [place]: 2.85 Aortic Valve AoV Pk Zechariah: 1.18 AoV Pk Grad: 6.00 ALMA ROSA: 3.05 LVOT LVOT Pk Zechariah: 1.03 LVOT Mn Zechariah: 0.71 LVOT VTI: 0.23 LVOT Pk Grad: 4.00 LVOT Mn Grad: 3.00 LVOT Diam: 2.10 LVOT Area: 3.46 Diastolic Function MV Pk E: 0.72 MV Pk A: 0.34 E/A: 2.10 E'Medial: 8.81 E/E' Med: 8.20 E' Laterial: 9.90 E/E' Lat: 7.30 Right Ventricle TAPSE (mm): 21.70 TVS' Zechariah: 12.30 Tricuspid Valve RA Press: 3.00 Great Vessels Aorta Sinus of Valsalva: 3.10 2.0-3.5 cm Ao Asc: 3.10 2.1-3.4 cm Pulmonary Valve PV Pk Zechariah: 0.93 Peak PV Grad: 3.00 DC Pk Zechariah: 1.35 Updated in Other Vendor System with Status of Final Robert Durham MD electronically signed on 01/06/2024 12:01:43 PM with status of Final
== END ==
LOC: HO.CARD 09:03
PROVIDERS: PCP Internal Medicine; Visit Provider Internal Medicine
DX: R07.2 Precordial pain (principal)
CPT/HCPCS: 93306

== ENCOUNTER → 2024-01-06 09:08 | Outpatient (BNV) | payer MEDICAID, SELFPAY | PROVIDERS: PCP Internal Medicine; Visit Provider Internal Medicine Cardiovascular Disease | DX: R07.2 Precordial pain (principal) | CPT/HCPCS: 93306 ==

== ENCOUNTER → 2024-01-12 10:00 | Outpatient (REF) | payer MEDICAID, SELFPAY ==
--- NOTE | 2024-01-12 10:03 | CA_ITS ---
Acquisition Time: 2024-01-12 10:03:55 Total Exercise Time: 00:10:00 Test Indications: CP Medications: SEE H Protocol: HAIM Max HR: 162 BPM 87% of Pred: 185 BPM Max BP: 140/070 mmHG Max Work Load: 11.7 METS Exercise stress test exercise 10 min of Haim protocol achieving 87% MPHR, without anginal symptoms, without arrhythmias, with normotensive response to exercise, without EKG changes. Test reviewed with Dr. Durham Referred By: Benjamin Rucker Overread By: Rosario Colby
== END ==
LOC: HO.CARD 10:00
PROVIDERS: PCP Internal Medicine; Visit Provider Internal Medicine
DX: R07.2 Precordial pain (principal)
CPT/HCPCS: 93017

== ENCOUNTER → 2024-01-12 10:03 | Outpatient (BNV) | payer MEDICAID, SELFPAY | PROVIDERS: PCP Internal Medicine; Visit Provider Nurse Practitioner | DX: R07.9 Chest pain, unspecified (principal) | CPT/HCPCS: 93016; 93018 ==

== ENCOUNTER 2024-10-11 08:58 | Outpatient (REF) | payer MEDICAID, SELFPAY ==
--- NOTE | 2024-10-11 09:00 | EMG_ITS ---
Right median and ulnar motor and sensory studies were performed. Right radial sensory and median and lateral antecubital brachial sensory studies were performed and paraspinal muscles were tested with a needle. IMPRESSION: Mild right ulnar nerve slowing across elbow. Otherwise no significant abnormality noted. MD YIN Rosario/GOPAL / [id number]
--- OUTSIDE RECORDS SUMMARY | 2024-10-11 09:36 | XMS_ITS | Clinical Summary ---
Author Organization [employer] Address [address] [place] [address] 7 [place] [address] Care Team Providers Care Estimate Clerk Name Role Phone Unavailable Primary Care Provider Unavailabl e Immunizations Name Administration Dates Next Due Influenza injectable quadrivalent preservative f ree 03/23/2023 Influenza, seasonal, injectable, preservative fr ee 02/22/2024 Moderna Covid-19 Vaccine 12+ 01/17/2021,08/21/19 21 Pfizer Covid-19 Vaccine 12+ 03/23/2023 Social History Tobacco Use Types Packs/Day Years Used Date Smoking Tobacco: Never Assessed Comments Unknown Sex and Gender Information Value Date Recorded Sex Assigned at Female 04/07/2022 10:30 AM EDT Legal Sex Female 10:30 AM EDT Gender Identity Female 04/07/2022 10:30 AM EDT Sexual Orientation Straight 04/07/2022 10 :30 AM EDT Plan of Treatment Health Maintenance Due Date Last Done Comments Depression Screening 1988 HIV Screening 1988 SDOH Screening 1988 Alcohol/Substance Use Screening 2000 Tobacco Screening 2000 Family Planning (PISQ) 09/22/2003 Hepatitis C Screening 2006 DTaP/Tdap/Td Vaccines (1 - Tdap) 09/22/2007 Hepatitis B Vaccines (1 of 3 - 19+ 3-dose series) 09/22/2007 Pap Smear 2009 Cervical Cancer Screening 2018 HPV/Cotest 2018 COVID-19 Vaccine (2023- season) 2024 03/23/2023, 07/09/2021, 01/17/2021, Additional history exists Zoster Vaccines (1 of 2) 2038 RSV Patients and Patients Aged 60 years or older (1 - 1-dose 75+ series) 09/22/2063 Influenza Vaccine Completed 02/22/2024, 03/23/2023 HIB Vaccines Aged Out No longer eligi ble based on patient's age to complete this topic HPV Vaccines Aged Out No longer eligi ble based on patient's age to complete this topic Hepatitis A Vaccines Aged Out No long er eligible based on patient's age to complete this topic IPV Vaccines Aged Out No longer eligi ble based on patient's age to complete this topic Meningococcal Vaccine Aged Out No maicol roland eligible based on patient's age to complete this topic Pneumococcal Vaccine: Pediatrics (0 to 5 Years) and At-Risk Patients (6 to 49) Years) Aged Out No longer eligible based on patient's age to complete this topic RSV under 20 months Aged Out No longe r eligible based on patient's age to complete this topic Rotavirus Vaccines Aged Out No longer eligible based on patient's age to complete this topic [place] [address] STANDARD
--- OUTSIDE RECORDS SUMMARY | 2024-10-11 09:36 | XMS_ITS | Clinical Summary ---
Author Organization [facility] Address [address] [place] [address] Phone Care Team Providers Care Ground Wood Supervisor Name Role Phone Physician, No Pcp Primary Care Provider Unavaila ble Social History Tobacco Use Types Packs/Day Years Used Date Smoking Tobacco: Never Assessed Comments Unknown Sex and Gender Information Value Date Recorded Sex Assigned at Not on file Legal Sex Female 3:57 AM EST Gender Identity Not on file Sexual Orientation Not on file Plan of Treatment Health Maintenance Due Date Last Done Comments DTaP,Tdap,and Td Vaccines (1 - Tdap) 09/22/2007 Hepatitis B Vaccines (1 of 3 - 19+ 3-dose series) 09/22/2007 Cervical Cancer Screening: Pap Smear 2009 COVID-19 Vaccine ( season) 2024 03/23/2023, 07/09/2021, 01/17/2021, Additional history exists Depression Screening 05/12/2024 HIV Screening 05/12/2024 Hepatitis C Screening 05/12/2024 Social Influencers of Health Screening 05/12/2024 Influenza Vaccine Completed 02/22/2024, 03/23/2023 HIB Vaccines [...] on patient's age to complete this topic MMR Vaccines Aged Out No longer eligi ble based on patient's age to complete this topic Meningococcal ACWY Vaccine Aged Out N o longer eligible based on patient's age to complete this topic Meningococcal B Vaccine Aged Out No l onger eligible based on patient's age to complete this topic Pneumococcal Vaccine: Pediatrics (0 to 5 Years) and At-Risk Patients (6 to 64 Years) Aged Out No longer eligible based on patient's age to complete this topic RSV Immunization Patients Under 20 months Aged Out No longer eligible based on patient's age to complete this topic Varicella Vaccines Aged Out No longer eligible based on patient's age to complete this topic [place] Care Teams Ground Wood Supervisor Relationship Specialty Start Date End Date Physician, No Pcp PCP - General 05/12/24
== END 2024-10-11 08:59 | disposition home or self-care (01) ==
LOC: HO.NEURO 08:58
PROVIDERS: PCP Internal Medicine; Visit Provider Internal Medicine
DX: G56.01 Carpal tunnel syndrome, right upper limb (principal)
CPT/HCPCS: 95886; 95910

== ENCOUNTER 2025-03-23 15:00 | Outpatient (REF) | payer MEDICAID, SELFPAY ==
--- NOTE | ~2025-03-23 | XR_ITS ---
EXAMINATION: XR HAND 3 OR MORE VIEWS LEFT HISTORY: INJURY OF MIDDLE FINGER COMPARISON: There are no prior studies available for comparison. FINDINGS: Three views of the left hand are submitted. Osseous mineralization is normal. There is no fracture or dislocation. The joint spaces are preserved. There is soft tissue swelling over the PIP joint of the middle finger. XR/XR hand LT min 3V IMPRESSION: Soft tissue swelling over the PIP joint of the middle finger. No fracture is seen. Electronically signed by: Kranthi Servin MD 03/23/2025 03:35 PM EDT
[2025-03-23 15:16] LABS: MANUAL DIFF FLAG NO
[2025-03-23 15:57] LABS: Hematocrit 36.5 % (37.0-47.0); Hemoglobin 11.9 g/dl (12.0-16.0); Imm Gran Abs Auto 0.05 X10*3/uL (0.00-0.03); Imm Gran Pct Auto 0.4 % (0.0-0.4); Lymphocytes Absolute Auto 2.5 X10*3/uL (1.2-4.9); Mean Corpuscular HGB Conc 32.6 g/dl (31.0-35.0); Mean Corpuscular Hemoglobin 32.7 pg (27.0-33.0); Mean Corpuscular Volume 100.3 fL (80.0-98.0); NRBC Abs Auto 0.000 X10*3/uL (0.0-0.012); NRBC Pct Auto 0.0 /100WBC (0.0-0.2); Platelet Count 345 X10*3/uL (160-400); Red Blood Count 3.64 X10*6/uL (4.20-5.50); White Blood Count 11.9 X10*3/uL (4.8-10.8)
[2025-03-23 16:44] LABS: Alanine Aminotransferase 30 U/L (0-31); Albumin Level 4.6 g/dL (3.5-5.0); Alkaline Phosphatase 55 U/L (39-117); Anion Gap 11 (12-20); Aspartate Amino Transferase 21 U/L (5-31); Blood Urea Nitrogen 11 mg/dL (9-16); Calcium 9.4 mg/dL (8.4-10.2); Carbon Dioxide 28 mmol/L (22-29); Chloride 105 mmol/L (96-108); Estimated Glomerular Filt Rate > 60; Potassium 3.6 mmol/L (3.3-5.1); Sodium 140 mmol/L (135-145); Total Protein 7.3 g/dL (6.5-8.0)
[2025-03-23 16:58] LABS: Thyroid Stimulating Hormone 1.33 uIU/mL (0.32-4.0)
--- OUTSIDE RECORDS SUMMARY | 2025-03-23 18:57 | XMS_ITS | Data Portability ---
Author Organization [facility] Address [address] [facility] [address] [place] [address] Care Team Providers Care Aoc Director Combat Operations Officer Name Role Phone CLAUDE WEISS Primary Care Provider NAYELI CLARK Referring Provider Assessment Encounter Date Assessment Date Assessment LastModified by Organization Details LastModified Time 10/14/2016 10/14/2016 Mariah Ji is a 26 year old woman with complaints of low back pain radiating into both lower extremities, left is greater than right. Pain started after a fall at home in May 2016. On exam, tenderness is elicited in her left piriformis muscle . MRI Lumbar spine shows minimal disc bulge at L4-5 with no nerve root impingement. She had a course of physical therapy with no pain benefit. I recommend a trial of left piriformis muscle injection under fluoroscopic guidance.The risks and benefits of the procedure were reviewed in detail . She wishes to proceed. An appointment has been booked. She needs a class b truck driver on the day of the procedure. [email or web address] Not available 11/04/2016 10:13:28 11/04/2016 11/04/2016 Mariah Ji is a 26 year old woman with complaints of low back pain radiating into both lower extremities, left is greater than right. Pain started after a fall at home in May 2016. On exam, tenderness is elicited in her left piriformis muscle . MRI Lumbar spine shows minimal disc bulge at L4-5 with no nerve root impingement. She had a course of physical therapy with no pain benefit. She is here for a trial of left piriformis muscle injection under fluoroscopic guidance.The risks and benefits of the procedure were reviewed in detail . She wishes to proceed. She needs to follow up in four weeks. [email or web address] Not available 11/04/2016 15:31:59 12/04/2016 12/04/2016 Mariah Ji is a 26 year old woman with complaints of low back pain radiating into both lower extremities, left is greater than right. Pain started after a fall at home in May 2016. On exam, tenderness is elicited in her left piriformis muscle . MRI Lumbar spine shows minimal disc bulge at L4-5 with no nerve root impingement. She had a course of physical therapy with no pain benefit. She is here for a follow up after a trial of left piriformis muscle injection under fluoroscopic guidance. She reports no pain benefit. I have given her samples to flector patches to place on her low back. I recommend an ultrasound of her kidneys to rule out kidney stones as a possible cause of her low back pain. I have advised her to discuss with her PCP. [email or web address] Not available 12/04/2016 14:47:52 Plan of Treatment Reminders Order Date Submit Date Provider Last Modified By Organization Details Last Modified Time Details Appointments None record ed. Lab None record ed. Referral None record ed. Procedures None record ed. Surgeries None record ed. Imaging None record ed. Medication Orders None record ed. Patient TargetsNo targets recorded. Patient Instructions Encounter Date Encounter Id Patient Instructions Last Modified By Organization Details Last Modified Time 10/14/2016 [id number] She was advised to continue with activities as tolerated. [email or web address] Not available 11/04/2016 10:13:41 11/04/2016 [id number] She was advised to continue with activities as tolerated. [email or web address] Not available 11/04/2016 15:31:35 12/04/2016 [id number] She was advised to continue with activities as tolerated. [email or web address] Not available 12/04/2016 14:46:22 Reason for Referral None Reported. Procedures Surgical History Date Name Laterality Status Provider Name and Address Organization Details Recorded Time 7 Piriformis injection under fluroscopic guidance. completed Lawrence Mcfadden MD [address] [facility] , [address], [place], [address], [facility] - Pain Management 11/04/2016 15:31:20 Caesarean Section completed Kristin Richter [place] - Pain Management 10/14/2016 11:43:38 Imaging Results None recorded. Procedure Notes None recorded. Medical Equipment None Reported. Allergies Allergen ID Allergen Name Allergen Category Reaction Reaction Severity Criticality Documentation Date Start Date Code Code System Note Provider Name and Address Organization Details Recorded Time 74871 aspirin medicatio n itching Not available Not available 10/14/2016 1191 RxNorm Kristin bailey [facility] 7 11:38:39 Medications Name Sig Start Date Stop Date Status Note LastModified by Organization Details LastModified Time levothyroxi ne 75 mcg tablet Take 1 tablet every day by oral route. active Pt medcicatio n states increase to 100 mcg Not Available Not Available Not Available amitriptyli ne 25 mg tablet Take 1 tablet every day by oral route. active Not Available Not Available No t Available Naprosyn 500 mg tablet Take 1 tablet twice a day by oral route. active Not Available Not Available No t Available Tylenol w Codeine active Not Available Not Available Not Available Vitals Date Recorded Heart rate Oxygen saturation Oxygen saturation in Arterial blood by Pulse oximetry Body height Body weight Body mass index (BMI) Systolic And Diastolic Provider Name and Address Organization Details Last Updated DateTime 7 67 /min 100 % 100 % 162.56 cm 67712.7 8 g 27.5 kg/m2 105/64 mm[Hg] Kristin Richter [facility] 7 11:36:26 Date Recorded Body height Heart rate Oxygen saturation Oxygen saturation in Arterial blood by Pulse oximetry Systolic And Diastolic Provider Name and Address Organization Details Last Updated DateTime 7 162.56 cm 68 /min 98 % 98 % 108/51 mm[Hg] Kristin Richter [facility] 7 15:15:07 Date Recorded Body height Heart rate Oxygen saturation Oxygen saturation in Arterial blood by Pulse oximetry Systolic And Diastolic Provider Name and Address Organization Details Last Updated DateTime 7 162.56 cm 67 /min 98 % 98 % 107/60 mm[Hg] Kristin Richter [facility] 7 14:01:29 Social History Question Answer Notes LastModified by Organizat ion Details LastModified Time Tobacco Smoking Status Current Some Day Smoker Not Available [facility] 03/23/2020 03:16:11 Which Illicit Or Recreational Drugs Have You Used? No [id number] Information not available 03/23/2020 Education 12 Information no t available 10/14/2016 Live Alone Or With Others? With Others Daughter Information not available 10/14/2016 Marital Status Single [email or web address] Informatio n not available 10/14/2016 Sex: Unknown Functional Status Question Answer Note LastModified by Organizat ion Details LastModified Time What is your level of alcohol consumption? Occasional [id number] Information not available 03/23/2020 Are you currently employed? 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 Family History Relationship Description Onset Age of this Age Resolved Age Notes LastModified by Organization Details LastModified Time Mother Hypothyroidi sm [email or web address] Not available 2016 11:41:35 Mother Hypertensive disorder [email or web address] Not available 2016 11:41:47 Medical History Condition Response Migrane Y Hypothyroidism Y Gynecological HistoryNo gynecological history recorded. Obstetrics History GPAL:G 0 P 0 0 0 0 Past Encounters Encounter ID Performer Location Encounter Start Date Encounter Closed Date Diagnosis/Indication Diagnosis SNOMED-CT Code Diagnosis ICD10 Code Diagnosis IMO Codes Diagnosis Note [id number] Lawrence Mcfadden MD PAIN OFFICE [address] [place] [address] 10/14/2016 11:35:22 11/04/2016 10:23:11 Muscle pain 00946878 M79.1 Displaceme nt of lumbar intervertebral disc without myelopathy 25777614 M51.26 Left-sided piriformis syndrome 7179156641 87698 M54.32 [id number] Lawrence Mcfadden MD PAIN OFFICE [address] [place] [address] 11/04/2016 15:13:45 11/05/2016 14:41:56 Muscle pain 57242643 M79.1 Displaceme nt of lumbar intervertebral disc without myelopathy 17225456 M51.26 Left-sided piriformis syndrome 9000535796 40064 M54.32 [id number] Lawrence Mcfadden MD PAIN OFFICE [address] [place] [address] 12/04/2016 13:53:21 12/10/2016 11:20:24 Muscle pain 11712258 M79.1 Displaceme nt of lumbar intervertebral disc without myelopathy 95355747 M51.26 Left-sided piriformis syndrome 7341966086 25630 M54.32 Health Concerns Section Related Observation LastModified by Organization Detai ls LastModified Time None Recorded Concern Status LastModified by Organization Details LastModified Time None Recorded Advance Directives Directive None Recorded Payers Insurance Date Sequence Insurance Name Policy Number Policy Mclaughlin Covered Member ID Mclaughlin Member ID Guarantor Name 11/05/2016 1 [place] [employer] Gwendolyn Ji [id number] Gwendolyn Ji 12/10/2016 1 [place] [facility] Gwendolyn Ji [id number] Gwendolyn Ji Notes Date Note Type Note Provider Name and Address Organization Details Recorded Time 10/14/2016 text/html Mariah ji is a 26 year old woman with complaints of low back pain radiating into both lower extremities, left is greater than right. She describes the pain in her legs as a cramping pain with tingling sensation. The pain started after a fall in May down her stairs due to black ice. She had no loss of consciousness or fractures . She has been having pain in her low back since the fall. Current pain level is 8/10. Pain is constant with no aggravating or relieving factors. She has no history of bladder or bowel incontinence.She had physical therapy at [facility] [place] [place] for three months and had minimal pain benefit. She is taking naprosyn and tylenol with codeine with some pain benefit.MRI Lumbar spine shows minimal disc bulge at L4-5 with no nerve root impingement. Lawrence Mcfadden MD [address] , [address], [place], [address], [facility] - Pain Management 11/04/2016 12:04:47 11/04/2016 text/html She is here for a left piriformis muscle steroid injection under fluoroscopic guidance. Lawrence Mcfadden MD [address] , [address], [place], [address], [facility] - Pain Management 11/10/2016 11:45:13 12/04/2016 text/html She is here for a follow up after a left piriformis muscle injection under fluoroscopic guidance. She reports no pain benefit. She states tylenol with codeine helps a little. She is unable to take it when she has to drive or work. She has continued pain in left low back. She states sometime the pain is severe . She feels it starts in her low back and radiates into the groin. She reports no burning sensation when passing urine and no hematuria. She has no history of bladder or bowel incontinence. Lawrence Mcfadden MD [address] [place] [address] , [address], [place], [address], [place] - [facility] 12/22/2016 15:51:31 OBGyn Episode No OBEpisode recorded.
--- OUTSIDE RECORDS SUMMARY | 2025-03-23 18:57 | XMS_ITS | Clinical Summary ---
Author Organization [facility] Address [address] [place] [address] Phone Care Team Providers Care Conditioning Room Worker Name Role Phone Physician, No Pcp Primary [...] 09/22/2007 Cervical Cancer Screening: Pap Smear 2009 HPV Vaccines (1 - 3-dose SCDM series) 09/22/2015 HIV Screening 05/12/2024 Hepatitis C Screening 05/12/2024 Social Influencers of Health Screening 05/12/2024 Depression Screening 06/08/2024 COVID-19 Vaccine ( season) 2025 03/23/2023, 07/09/2021, 01/17/2021, Additional history exists Influenza Vaccine (#1) 2025 02/22/2024, 2022 RSV Immunization Adult Patients (1 - 1-dose 75+ series) 09/22/2063 HIB Vaccines Aged Out No longer eligi [...] 5 Years) and At-Risk Patients (6 to 49 Years) Aged Out No longer eligible based on patient's age to complete this topic RSV Immunization Patients Under 20 months Aged Out No longer eligible based on patient's age to complete this topic Varicella Vaccines Aged Out No longer eligible based on patient's age to complete this topic [place] Care Teams Conditioning Room Worker Relationship Specialty Start Date End Date Physician, No Pcp PCP - General 05/12/24
--- OUTSIDE RECORDS SUMMARY | 2025-03-23 18:57 | XMS_ITS | Clinical Summary ---
Author Organization [employer] Address [address] [place] [address] [address] [place] [address] Care Team Providers Care Process Engineering Intern Name Role Phone Unavailable Primary Care Provider Unavailabl e Immunizations Immunization Administration Dates Next Due Influenza injectable quadrivalent [...] 1988 HIV Screening 1988 SDOH Screening 1988 Disability Screening 1988 Alcohol/Substance Use Screening 2000 Tobacco Screening 2000 Family Planning (PISQ) 09/22/2003 HPV Vaccines (1 - 3-dose series) 09/22/2003 Hepatitis C Screening 2006 DTaP/Tdap/Td Vaccines (1 - Tdap) 09/22/2007 Hepatitis B Vaccines (1 of 3 - 19+ 3-dose series) 09/22/2007 Pap Smear 2009 Cervical Cancer Screening 2018 HPV/Cotest 2018 COVID-19 Vaccine ( season) 2025 03/23/2023, 07/09/2021, 01/17/2021, Additional history exists Influenza Vaccine (#1) 2025 02/22/2024, 2022 Zoster Vaccines (1 of 2) 2038 RSV Patients and Patients Aged 60 years or older (1 - 1-dose 75+ series) 09/22/2063 HIB [...] Years) and At-Risk Patients (6 to 49) Years Aged Out No longer eligible based on patient's age to complete this topic RSV under 20 months Aged Out No longe r eligible based on patient's age to complete this topic Rotavirus Vaccines Aged Out No longer eligible based on patient's age to complete this topic Insurance STANDARD
== END 2025-03-23 15:01 | disposition home or self-care (01) ==
LOC: HO.XRAY 15:00
PROVIDERS: PCP Internal Medicine; Visit Provider Internal Medicine
DX: Z00.00 Encounter for general adult medical examination without abnormal findings (principal); S69.82XA Other specified injuries of left wrist, hand and finger(s), initial encounter; E03.9 Hypothyroidism, unspecified; V00.11 In-line roller-skate accident; Z79.3 Long term (current) use of hormonal contraceptives
CPT/HCPCS: 36415; 73130; 80053; 84443; 85025

== ENCOUNTER → 2025-03-23 15:28 | Outpatient (BNV) | payer MEDICAID, SELFPAY | PROVIDERS: PCP Internal Medicine; Visit Provider Radiology Diagnostic Radiology | DX: M79.645 Pain in left finger(s) (principal) | CPT/HCPCS: 73130 ==

== ENCOUNTER 2025-04-21 08:01 | Outpatient (REF) | payer MEDICAID, SELFPAY ==
--- NOTE | ~2025-04-21 | XR_ITS ---
EXAMINATION: XR HAND, LEFT CLINICAL INFORMATION: M79.642 - Pain in left hand. History of injury of middle finger. COMPARISON: X-ray 03/23/2025 TECHNIQUE: PA, lateral, and oblique views of the left hand. FINDINGS: Third digit: Marker positioned at the third digit. Mild soft tissue swelling around the PIP joint. No visible acute fracture or dislocation. Subtle subchondral lucency in the medial aspect of the distal middle phalanx, nonspecific. This could represent degenerative changes. No acute fracture or malalignment is otherwise seen. No significant joint space narrowing. No abnormal soft tissue calcification. XR/XR hand LT min 3V IMPRESSION: Redemonstrated soft tissue swelling centered around the third PIP joint. No radiographic evidence of acute fracture. Subtle subchondral lucency in the medial aspect of the distal middle phalanx, nonspecific, could represent degenerative changes. Electronically signed by: Mono Rivas MD 04/21/2025 11:30 AM [facility]
--- OUTSIDE RECORDS SUMMARY | 2025-04-21 08:04 | XMS_ITS | Clinical Summary ---
Author Organization [email or web address] Address [address] [place] [address] [address] [place] [address] Care Team Providers Care Parts Advisor Name Role Phone Unavailable Primary Care Provider [...]
--- OUTSIDE RECORDS SUMMARY | 2025-04-21 08:04 | XMS_ITS | Data Portability ---
Author Organization [facility], PAIN OFFICE Address [address] [facility] [address] [place] [address] Care Team Providers Care Tool Shaper Set Up Operator Name Role Phone CLAUDE WEISS Primary Care [...] appointment has been booked. She needs a route driver salesperson on the day of the procedure. [email or web address] [...] By Organization Details Last Modified Time 10/14/2016 29240 She was advised to continue with activities as tolerated. [email or web address] Not available 11/04/2016 10:13:41 11/04/2016 20494 She was advised to continue with activities as tolerated. [email or web address] Not available 11/04/2016 15:31:35 12/04/2016 38356 She was advised to continue with activities as tolerated. [email or web address] Not available 12/04/2016 14:46:22 Reason for Referral None Reported. Procedures Surgical History Date Name Laterality Status Provider Name and Address Organization Details Recorded Time 7 Piriformis injection under fluroscopic guidance. completed Lawrence Mcfadden MD [address] [facility] [address] [address] , [address], [place], [address], [facility] - Pain Management 11/04/2016 15:31:20 Caesarean Section completed Kristin Richter [place] - Pain Management 10/14/2016 11:43:38 Imaging Results None recorded. Procedure Notes None recorded. Medical Equipment None Reported. Allergies Allergen ID Allergen Name Allergen Category Reaction Reaction Severity Criticality Documentation Date Start Date Code Code System Note Provider Name and Address Organization Details Recorded Time 45023 aspirin medicatio n itching Not available Not available 10/14/2016 1191 RxNorm Kristin bailey [facility] 7 11:38:39 Medications Name [...] /min 100 % 100 % 162.56 cm 55752.7 8 g 27.5 kg/m2 105/64 mm[Hg] Kristin Richter [facility] Pain [facility] 7 11:36:26 Date Recorded Body height Heart rate Oxygen saturation Oxygen saturation in Arterial blood by Pulse oximetry Systolic And Diastolic Provider Name and Address Organization Details Last Updated DateTime 7 162.56 cm 68 /min 98 % 98 % 108/51 mm[Hg] Kristin Richter [facility] Pain [facility] 7 15:15:07 Date Recorded Body height Heart rate Oxygen saturation Oxygen saturation in Arterial blood by Pulse oximetry Systolic And Diastolic Provider Name and Address Organization Details Last Updated DateTime 7 162.56 cm 67 /min 98 % 98 % 107/60 mm[Hg] Kristin Richter [facility] Pain Management 7 14:01:29 Social History Question Answer Notes LastModified by Organizat ion Details LastModified Time Tobacco Smoking Status Current Some Day Smoker Not [facility] 03/23/2020 03:16:11 Which Illicit Or Recreational Drugs Have You Used? No [id number] Information not available 03/23/2020 Education 12 Information no t available 10/14/2016 Live Alone Or With Others? With Others Daughter Information not available 10/14/2016 Marital Status Single [email or web address] Informatio n not available 10/14/2016 Sex: Unknown Functional Status Question Answer Note LastModified by Organizat ion Details LastModified Time What is your level of alcohol consumption? Occasional [id number] Information not available 03/23/2020 Are you currently employed? 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 Information not available 10/14/2016 Mental Status [...] ICD10 Code Diagnosis IMO Codes Diagnosis Note [id number] Lawrence Mcfadden MD PAIN OFFICE [address] [place] [address] 10/14/2016 11:35:22 11/04/2016 10:23:11 Muscle pain 83995640 M79.1 Displaceme nt of lumbar intervertebral disc without myelopathy 95747457 M51.26 Left-sided piriformis syndrome [id number] 34859 M54.32 [id number] Lawrence Mcfadden MD PAIN OFFICE [address] [place] [address] 11/04/2016 15:13:45 11/05/2016 14:41:56 Muscle pain 33897961 M79.1 Displaceme nt of lumbar intervertebral disc without myelopathy 87375215 M51.26 Left-sided piriformis syndrome 2717236186 78986 M54.32 [id number] Lawrence Mcfadden MD PAIN OFFICE [address] [place] [address] 12/04/2016 13:53:21 12/10/2016 11:20:24 Muscle pain 31947912 M79.1 Displaceme nt of lumbar intervertebral disc without myelopathy 56322944 M51.26 Left-sided piriformis syndrome 5934815786 96371 M54.32 Health Concerns Section Related Observation LastModified by Organization Detai ls LastModified Time None Recorded Concern Status LastModified by Organization Details LastModified Time None Recorded Advance Directives Directive None Recorded Payers Insurance Date Sequence Insurance Name Policy Number Policy Mclaughlin Covered Member ID Mclaughlin Member ID Guarantor Name 11/05/2016 1 [place] [employer] Gwendolyn Ji [id number] Gwendolyn Ji 12/10/2016 1 [place] Gwendolyn Ji [id number] Gwendolyn Ji Notes Date Note Type Note [...] had physical therapy at [facility] [place], [place] for three months and had minimal pain benefit. She is taking naprosyn and tylenol with codeine with some pain benefit.MRI Lumbar spine shows minimal disc bulge at L4-5 with no nerve root impingement. Lawrence Mcfadden MD [address] , [address], [place], [address], [facility] - Pain Management 11/04/2016 12:04:47 11/04/2016 text/html She is here for a left piriformis muscle steroid injection under fluoroscopic guidance. Lawrence Mcfadden MD [address] , [address], [place], [address], [facility] - Pain Management 11/10/2016 11:45:13 12/04/2016 text/html [...] bladder or bowel incontinence. Lawrence Mcfadden MD [address] [place] [address] , [address], [place], [address], [place] [facility] 12/22/2016 15:51:31 OBGyn Episode No OBEpisode recorded.
== END 2025-04-21 08:02 | disposition home or self-care (01) ==
LOC: HO.HOSX 08:01
DX: S63.282D Dislocation of proximal interphalangeal joint of right middle finger, subsequent encounter (principal); V00.111D Fall from in-line roller-skates, subsequent encounter
CPT/HCPCS: 73130

== ENCOUNTER → 2025-04-21 09:34 | Outpatient (BNV) | payer MEDICAID, SELFPAY | PROVIDERS: Visit Provider Radiology Diagnostic Ultrasound | DX: M79.89 Other specified soft tissue disorders (principal) | CPT/HCPCS: 73130 ==